=== PATIENT | male | born 1960 | race Caucasian/White ===

== ENCOUNTER 2017-08-29 18:40 | Emergency (ER) | payer BC ==
[~2017-08-29] VITALS: Ht 172.7 cm; Wt 95.4 kg
[~2017-08-29 18:40] MED LIST: CIPRO500 MG PO; FLAGYL500 MG PO; FLEXERIL10 MG PO; INVOKANA100 MG PO; MOTRIN IB200 MG PO; NAPROSYN500 MG PO; RAMIPRIL10 MG PO; SPIRIVA1 INHALATI IH; VENTOLIN HFA18 GM IH; VICODIN 5-3001 EACH PO
[2017-08-29] MEDS ORDERED: MOTRIN800 MG PO (21:52)
[2017-08-29 22:18] VITALS: BP 130/111
== END 2017-08-29 22:19 | disposition home or self-care (01) ==
LOC: EME 18:40
DX: M79.89 Other specified soft tissue disorders (principal); M25.531 Pain in right wrist; M25.561 Pain in right knee; M25.562 Pain in left knee; E11.9 Type 2 diabetes mellitus without complications; I10 Essential (primary) hypertension; Z87.891 Personal history of nicotine dependence
CPT/HCPCS: 84550; 99281; 99284; J1100